=== PATIENT | male | born 1960 | race Caucasian/White ===

== ENCOUNTER 2016-09-29 08:06 | Day surgery (SDC) | payer BC ==
[2016-09-29] MEDS ORDERED: Lidocaine 1%/Sod Bicarbonate in NS 8.4% 1 ML Syringe PRN (08:42)
[2016-09-29] MEDS ORDERED: Sodium Chloride 0.9% 10 ML Syringe FLUSH PRN (08:42)
[2016-09-29] MEDS ORDERED: Lactated Ringers 1,000 ML IV SCH (08:45)
--- NOTE | 2016-09-29 09:44 | PCM.PREANE ---
Preanesthetic Assessment - Anesthesia/Transfusion/Family Hx Anesthesia History: Prior Anesthesia Without Reaction Family History of Anesthesia Reaction: No Transfusion History: No Prior Transfusion(s) - Review of Systems General: No Symptoms Pulmonary: No Symptoms Cardiovascular: No Symptoms Gastrointestinal: No Symptoms Neurological: Numbness (right hand shoulder) Other: Reports: None - Physical Assessment NPO Status Date: 09/28/16 NPO Status Time: 00:00 Pulse: 52 O2 Sat by Pulse Oximetry: 95 Respiratory Rate: 16 Blood Pressure: 143/84 Temperature: 36.6 C Height: 1.83 m Weight: 108.862 kg ASA Class: 2 Mental Status: Alert & Oriented x3 Airway Class: Mallampati = 1 Dentition: Reports: Helix(s) Thyro-Mental Finger Breadths: 3 Mouth Opening Finger Breadths: 3 ROM/Head Extension: Limited/Partial Lungs: Clear to Auscultation, Normal Respiratory Effort Cardiovascular: Regular Rate, Regular Rhythm - Allergies Allergies/Adverse Reactions: Allergies Allergy/AdvReac Type Severity Reaction Status Date / Time amoxicillin Allergy Hives Verified 08/07/14 21:38 - Blood Blood Available: No Product(s) Available: None - Anesthesia Plan Pre-Op Medication Ordered: None - Acknowledgements Anesthesia Type Planned: MAC Pt an Appropriate Candidate for the Planned Anesthesia: Yes Alternatives and Risks of Anesthesia Discussed w Pt/Guardian: Yes Pt/Guardian Understands and Agrees with Anesthesia Plan: Yes PreAnesthesia Questionnaire Other Genitourinary History: bladder cancer - Past Surgical History Other Musculoskeletal Surgeries/Procedures:: multiple fractures throughout life. - SUBSTANCE USE Smoking Status *Q: Never Smoker Second Hand Smoke Exposure: No Recreational Drug Use History: No - HOME MEDS Home Medications: Home Meds Verapamil HCl [Verapamil ER] 180 mg PO DAILY 08/07/14 [History] Aspirin 81 mg PO DAILY 09/24/16 [History] Fish Oil/[place]-3 Fatty Acids [Fish Oil 1,000 MG] 1 cap PO DAILY 09/24/16 [ History] Losartan [Cozaar] 50 mg PO BID 09/24/16 [History] Pravastatin [Pravachol] 20 mg PO DAILY 09/24/16 [History] Vitamin B Complex 1 tab PO DAILY 09/24/16 [History] - CURRENT (IN HOUSE) MEDS Current Meds: Current Medications Lactated Ringer's (Ringers, Lactated) 1,000 mls @ 125 mls/hr IV ASDIRECTED HOLDEN Stop: 09/29/16 23:00 Lidocaine/Sodium Bicarbonate (Buffered Lidocaine 1% In Ns 8.4%) 0.25 ml .XX ONETIME PRN PRN Reason: Prior to IV Start Stop: 09/29/16 18:00 Phenylephrine HCl ([place]-Synephrine 2.5% Ophth Soln) 0 ml EYERT ONETIME HOLDEN Stop: 09/29/16 16:00 Sodium Chloride (Saline Flush) 10 ml FLUSH ASDIRECTED PRN PRN Reason: Keep Vein Open Stop: 09/29/16 18:00
[2016-09-29] MEDS ORDERED: Propofol 200 MG/20 ML SDV ONE (09:45)
[2016-09-29] MEDS ORDERED: Lidocaine 1% 4 ML ONE (09:45)
[2016-09-29] MEDS ORDERED: fentaNYL 100 MCG/2 ML SDV ONE (09:46)
[2016-09-29] MEDS ORDERED: Lidocaine 1% with EPINEPHrine 1:100,000 20 ML MDV ONE (10:50)
[2016-09-29] MEDS ORDERED: Erythromycin Base 0.5% Ophth Oint 1 GM Tube ONE (10:50)
[2016-09-29] MEDS: Phenylephrine 2.5% Ophth Soln 2 ML Bot EYERT SCH ×2 (10:53→10:56)
[2016-09-29] MEDS ORDERED: Glycopyrrolate 0.2 MG/ML SDV ONE (11:08)
[2016-09-29] MEDS ORDERED: Atropine 0.4 MG/ML SDV ONE (11:12)
--- NOTE | 2016-09-29 11:30 | PCM48HPAN ---
Post Anesthesia Note - EVALUATION WITHIN 48HRS OF ANESTHETIC Vital Signs in Normal Range: Yes Patient Participated in Evaluation: Yes Respiratory Function Stable: Yes Airway Patent: Yes Cardiovascular Function Stable: Yes Hydration Status Stable: Yes Pain Control Satisfactory: Yes Nausea and Vomiting Control Satisfactory: Yes Mental Status Recovered: Yes
[2016-09-29 12:39] VITALS: BP 141/66
== END 2016-09-29 12:25 | disposition home or self-care (01) ==
LOC: JD.SDS 08:06
PROVIDERS: ATTEND Ophthalmology
DX: H11.051 Peripheral pterygium, progressive, right eye (principal); H16.042 Marginal corneal ulcer, left eye; H25.813 Combined forms of age-related cataract, bilateral; H01.024 Squamous blepharitis left upper eyelid; H01.025 Squamous blepharitis left lower eyelid; H01.021 Squamous blepharitis right upper eyelid; H01.022 Squamous blepharitis right lower eyelid; H02.831 Dermatochalasis of right upper eyelid; H02.834 Dermatochalasis of left upper eyelid; I10 Essential (primary) hypertension; Z86.73 Personal history of transient ischemic attack (TIA), and cerebral infarction without residual deficits; Z85.9 Personal history of malignant neoplasm, unspecified; Z88.0 Allergy status to penicillin; Z79.82 Long term (current) use of aspirin; Z79.899 Other long term (current) drug therapy; Z98.890 Other specified postprocedural states
CPT/HCPCS: 65426; 93005; A9270; J0461; J3010; J3490; J7120; J2704

== ENCOUNTER 2019-09-13 07:25 | Day surgery (SDC) | payer BC, OTHER ==
[~2019-09-13 07:25] MED LIST: Lactated Ringers 1,000 ML IV SCH; Lidocaine 1%/Sod Bicarbonate in NS 8.4% 1 ML Syringe IDERM PRN; Sodium Chloride 0.9% 10 ML Syringe FLUSH PRN
--- NOTE | 2019-09-13 07:55 | PCM.PREANE ---
Preanesthetic Assessment - Anesthesia/Transfusion/Family Hx Anesthesia History: Prior Anesthesia Without Reaction Family History of Anesthesia Reaction: No Transfusion History: No Prior Transfusion(s) - Review of Systems General: No Symptoms Pulmonary: Other (ISSA no CPAP) Cardiovascular: Other Gastrointestinal: No Symptoms, Other (hx of GERD, changed diet) Neurological: Other (hx of cva, states no residual) Other: Reports: Easy Bleeding, Easy Bruising (on eliquis, stopped 09/10/19) - Physical Assessment NPO Status Date: 09/12/19 NPO Status Time: 22:00 Vital Signs: Last Vital Signs Temp 36.2 C 09/13/19 07:20 Pulse 57 L 09/13/19 07:20 Resp 16 09/13/19 07:20 BP 148/74 H 09/13/19 07:20 Pulse Ox 94 L 09/13/19 07:20 Height: 1.83 m Weight: 106.594 kg ASA Class: 3 Mental Status: Alert & Oriented x3 Dentition: Reports: Normal Dentition Thyro-Mental Finger Breadths: 3 Mouth Opening Finger Breadths: 3 ROM/Head Extension: Full Lungs: Clear to Auscultation, Normal Respiratory Effort Cardiovascular: Regular Rate, Regular Rhythm - Lab Values: Laboratory Last Values Sodium 143 mEq/L (136-145) 08/28/19 08:35 Potassium 4.4 mEq/L (3.5-5.1) 08/28/19 08:35 Chloride 107 mEq/L (98-107) 08/28/19 08:35 Carbon Dioxide 24 mEq/L (21-32) 08/28/19 08:35 Anion Gap 16.4 (5-15) H 08/28/19 08:35 BUN 47 mg/dL (7-18) H 08/28/19 08:35 Creatinine 1.8 mg/dL (0.7-1.3) H 08/28/19 08:35 Est Cr Clr Drug Dosing TNP 08/28/19 08:35 Estimated GFR (MDRD) 39 mL/min (>60) 08/28/19 08:35 BUN/Creatinine Ratio 26.1 (14-18) H 08/28/19 08:35 Glucose 94 mg/dL (74-106) 08/28/19 08:35 Calcium 9.5 mg/dL (8.5-10.1) 08/28/19 08:35 - Allergies Allergies/Adverse Reactions: Allergies Allergy/AdvReac Type Severity Reaction Status Date / Time amoxicillin Allergy Hives Verified 09/13/19 07:42 chlorhexidine Allergy Rash Verified 09/13/19 07:42 - Blood Blood Available: No Product(s) Available: None - Acknowledgements Anesthesia Type Planned: MAC Pt an Appropriate Candidate for the Planned Anesthesia: Yes Alternatives and Risks of Anesthesia Discussed w Pt/Guardian: Yes Pt/Guardian Understands and Agrees with Anesthesia Plan: Yes PreAnesthesia Questionnaire HEENT History: Reports: Impaired Vision, Other (See Below) Other HEENT History: peripheral ulcerative keratitis Cardiovascular History: Reports: Afib, Hypertension, Other (See Below) Other Cardiovascular History: biscuspid aortic valve, aortic valve i nsufficiency, WPW Respiratory History: Reports: Other (See Below) Other Respiratory History: snoring, witnessed apnea Gastrointestinal History: Reports: None Other Genitourinary History: bladder cancer, CKD III, hematuria, protenuria 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 Neurological History: Reports: CVA, Other (See Below) Other Neuro History: embolic stroke, IGA neuropathy Psychiatric History: Reports: None Endocrine/Metabolic History: Reports: Obesity/BMI 30+ Hematologic History: Reports: None Immunologic History: Reports: None Oncologic (Cancer) History: Reports: None Dermatologic History: Reports: None - Past Surgical History Head Surgeries/Procedures: Reports: None HEENT Surgical History: Reports: Eye Surgery Cardiovascular Surgical History: Reports: Cardiac Ablation Respiratory Surgical History: Reports: None GI Surgical History: Reports: Colonoscopy Male Surgical History: Reports: Vasectomy Endocrine Surgical History: Reports: None Neurological Surgical History: Reports: None Musculoskeletal Surgical History: Reports: Other (See Below) Other Musculoskeletal Surgeries/Procedures:: multiple fractures throughout life, left ankle fracture with hardware intact Oncologic Surgical History: Reports: None Dermatological Surgical History: Reports: None - SUBSTANCE USE Smoking Status *Q: Never Smoker Recreational Drug Use History: No - HOME MEDS Home Medications: Home Meds Verapamil HCl [Verapamil ER] 180 mg PO DAILY 08/07/14 [History] Losartan [Cozaar] 50 mg PO BID 09/24/16 [History] Vitamin B Complex 1 tab PO DAILY 09/24/16 [History] Apixaban [Eliquis] 5 mg PO BID 09/12/19 [History] Ascorbic Acid [Vitamin C] 1,000 mg PO DAILY 09/12/19 [History] Chlorthalidone 12.5 mg PO DAILY 09/12/19 [History] Multivitamin 1 tab PO DAILY 09/12/19 [History] - CURRENT (IN HOUSE) MEDS Current Meds: Current Medications Lactated Ringer's (Ringers, Lactated) 1,000 mls @ 125 mls/hr IV ASDIRECTED HOLDEN Stop: 09/13/19 23:00 Lidocaine/Sodium Bicarbonate (Buffered Lidocaine 1% In Ns 8.4%) 0.25 ml IDERM ONETIME PRN PRN Reason: Prior to IV Start Stop: 09/13/19 18:00 Sodium Chloride (Saline Flush) 10 ml FLUSH ASDIRECTED PRN PRN Reason: Keep Vein Open Stop: 09/13/19 18:00
[2019-09-13] MEDS ORDERED: Midazolam 1 MG/ML 2 ML SDV ONE (08:03)
[2019-09-13] MEDS ORDERED: Propofol 200 MG/20 ML SDV ONE (08:03)
--- NOTE | 2019-09-13 09:04 | PCM.OPNOTE ---
- General Post-Op/Procedure Note Date of Surgery/Procedure: 09/13/19 Operative Procedure(s): colonoscopy Findings: Diverticulosis Pre Op Diagnosis: family history of colon cancer Post-Op Diagnosis: same Anesthesia Technique: MAC Primary Surgeon: Rosanne Larsen Anesthesia Provider: Brenda Wu Fluid Replacement, Intraop: 800 Output, Urine Amount: 0 EBL in mLs: 0 Complications: none apparent Condition: Good
--- NOTE | 2019-09-13 09:08 | PCM.PRNOTE ---
- Free Text/Narrative Note: Operative Report Date of Surgery/Procedure: September 13, 2019 Operative Procedure: Colonoscopy to cecum Pre Op Diagnosis: Family history of colorectal cancer Post-Op Diagnosis: same Surgeon: Rosanne Larsen MD Anesthesia Technique: MAC Anesthesia Provider: Brenda Wu CRNA IV Fluid Replacement, Intraop: 800cc Output, Urine Amount: 0cc EBL: 0cc Findings: Diverticulosis Specimens: None Indication: The patient is a 59 year-old gentleman who presented to the outpatient clinic requesting colorectal cancer screening. The patient has a history of a first and second degree relative with colon cancer. We discussed the procedure of a colonoscopy including the polypectomy and biopsy. Risks of bleeding and perforation were discussed, the patient understood and wished to proceed. Written and consent was obtained Description of the procedure: The patient was brought to the endoscopy suite and placed in the left lateral decubitus position. Appropriate monitors were applied. The patient was given MAC anesthesia. An anorectal examination was performed, revealing no external abnormality. The scope was placed into the rectum and advanced to cecum with minimal difficulty. The patients cecum was entered, and the ileocecal valve and appendiceal orifice were identified and normal. At this point, the scope was withdrawn, paying careful attention to the mucosa. The patient had good bowel prep, allowing for visualization of 58-90% of the mucosa. Diverticulosis was noted scattered in the hepatic flexure and ascending colon . In the rectum, the scope was retroflexed and no abnormalities were noted, except for some hemorrhoidal tissue. The scope was placed back in the lumen and the excess air was aspirated. The patient tolerated the procedure well. Complications: none apparent Condition: Good, transported to PACU in stable condition Rosanne Larsen MD General Surgery
--- NOTE | 2019-09-13 09:09 | PCM48HPAN ---
Post Anesthesia Note - EVALUATION WITHIN 48HRS OF ANESTHETIC Vital Signs in Normal Range: Yes Patient Participated in Evaluation: Yes Respiratory Function Stable: Yes Airway Patent: Yes Cardiovascular Function Stable: Yes Hydration Status Stable: Yes Pain Control Satisfactory: Yes Nausea and Vomiting Control Satisfactory: Yes Mental Status Recovered: Yes Vital Signs: Last Vital Signs Temp 36.2 C 09/13/19 07:20 Pulse 57 L 09/13/19 07:20 Resp 16 09/13/19 07:20 BP 148/74 H 09/13/19 07:20 Pulse Ox 94 L 09/13/19 07:20
[2019-09-13 09:56] VITALS: BP 120/65; PULSE 66
== END 2019-09-13 09:54 | disposition home or self-care (01) ==
LOC: JD.SDS 07:25
PROVIDERS: ATTEND Surgery
DX: Z12.11 Encounter for screening for malignant neoplasm of colon (principal); K57.30 Diverticulosis of large intestine without perforation or abscess without bleeding; Z11.59 Encounter for screening for other viral diseases; Z80.0 Family history of malignant neoplasm of digestive organs; I12.9 Hypertensive chronic kidney disease with stage 1 through stage 4 chronic kidney disease, or unspecified chronic kidney disease; N18.3 Chronic kidney disease, stage 3 (moderate); E66.9 Obesity, unspecified; E78.5 Hyperlipidemia, unspecified; G47.33 Obstructive sleep apnea (adult) (pediatric); Z79.899 Other long term (current) drug therapy; Z88.0 Allergy status to penicillin; Z88.8 Allergy status to other drugs, medicaments and biological substances
CPT/HCPCS: 36415; 45378; 80048; 87635; J2250; J2704; J7120; 00812; U0002

== ENCOUNTER 2020-04-30 10:46 | Emergency (ER) | payer BC, OTHER ==
[2020-04-30] MEDS ORDERED: Sodium Chloride 0.9% 10 ML Syringe FLUSH PRN (11:05)
--- NOTE | 2020-04-30 11:51 | EDM.PDOC ---
ED HPI GENERAL MEDICAL PROBLEM - General Chief Complaint: Respiratory Problem Stated Complaint: [facility] Time Seen by Provider: 04/30/20 11:01 Source of Information: Reports: Patient, RN Notes Reviewed History Limitations: Reports: No Limitations - History of Present Illness INITIAL COMMENTS - FREE TEXT/NARRATIVE: Patient is a 59-year-old male presenting to the emergency department for evaluation with regards to cough, fever, chills, nausea, vomiting, and diarrhea. He also reports occasional shortness of breath. He denies chest pain. Symptoms began approximately 11 days ago. His is also ill and diagnosed with COVID-19. He has not been tested for COVID-19. He has a history of hypertension, Gljzk-[id number]-Geotb, and A. fib. He is on Eliquis. Denies any chronic lung conditions. On triage, oxygen was found to be slightly low at 92%, however at the time my exam, he had dip down to 87%. Vital signs are otherwise stable. Temperature 98.4, pulse 72, blood pressure 116/66, respiratory rate 13. Headache Pain Score (Numeric/FACES): 3 - Related Data Allergies Allergy/AdvReac Type Severity Reaction Status Date / Time amoxicillin Allergy Hives Verified 04/30/20 10:50 chlorhexidine Allergy Rash Verified 04/30/20 10:50 Home Meds: Home Meds RX: Verapamil HCl [Verapamil ER] 180 mg PO DAILY 08/07/14 [History] RX: Losartan [Cozaar] 50 mg PO BID 09/24/16 [History] RX: Vitamin B Complex 1 tab PO DAILY 09/24/16 [History] RX: Ascorbic Acid [Vitamin C] 1,000 mg PO DAILY 09/12/19 [History] RX: Multivitamin 1 tab PO DAILY 09/12/19 [History] RX: Apixaban [Eliquis] 5 mg PO BID #0 09/13/19 [Rx] Past Medical History HEENT History: Reports: Impaired Vision, Other (See Below) Other HEENT History: peripheral ulcerative keratitis Cardiovascular History: Reports: Afib, Hypertension, Other (See Below) Other Cardiovascular History: biscuspid aortic valve, aortic valve insufficiency, WPW Respiratory History: Reports: Other (See Below) Other Respiratory History: snoring, witnessed apnea Gastrointestinal History: Reports: None Other Genitourinary History: bladder cancer 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 Neurological History: Reports: CVA, Other (See Below) Other Neuro History: embolic stroke, IGA neuropathy Psychiatric History: Reports: None Endocrine/Metabolic History: Reports: Obesity/BMI 30+ Hematologic History: Reports: None Immunologic History: Reports: None Oncologic (Cancer) History: Reports: None Dermatologic History: Reports: None - Past Surgical History Head Surgeries/Procedures: Reports: None HEENT Surgical History: Reports: Eye Surgery Cardiovascular Surgical History: Reports: Cardiac Ablation Respiratory Surgical History: Reports: None GI Surgical History: Reports: Colonoscopy Male Surgical History: Reports: Vasectomy Endocrine Surgical History: Reports: None Neurological Surgical History: Reports: None Musculoskeletal Surgical History: Reports: Other (See Below) Other Musculoskeletal Surgeries/Procedures:: multiple fractures throughout life. Oncologic Surgical History: Reports: None Dermatological Surgical History: Reports: None Social & Family History - Tobacco Use Tobacco Use Status *Q: Never Tobacco User - Caffeine Use Caffeine Use: Reports: None - Recreational Drug Use Recreational Drug Use: No ED ROS GENERAL - Review of Systems Review Of Systems: See Below Constitutional: Reports: Fever, Chills, Weakness, Fatigue, Decreased Appetite HEENT: Reports: No Symptoms Respiratory: Reports: Shortness of Breath (Occasional), Cough ED EXAM, GENERAL - Physical Exam Exam: See Below General Appearance: Alert, WD/WN, No Apparent Distress Respiratory/Chest: No Respiratory Distress, No Accessory Muscle Use, Chest Non- Tender, Other (Faint crackles to the right lower lobe) Cardiovascular: Normal Peripheral Pulses, Regular Rate, Rhythm, No Edema, No Gallop, No JVD, No Murmur, No Rub GI/Abdominal: Normal Bowel Sounds, Soft, Non-Tender, No Organomegaly, No Distention, No Abnormal Bruit, No Mass Neurological: Alert, Oriented, CN II-XII Intact, Normal Cognition, Normal Gait, Normal Reflexes, No Motor/Sensory Deficits Psychiatric: Normal Affect, Normal Mood Skin Exam: Warm, Dry, Intact, Normal Color, No Rash #2 Interpretation EKG Date: 04/30/20 Time: 11:15 Rhythm: NSR Rate (Beats/Min): 72 Center Point: LAD-Left Center Point Deviation P-Wave: Present QRS: Normal ST-T: Normal QT: Normal EKG Interpretation Comments: Sinus rhythm at 72 Frequent unifocal PVCs Early R wave transition-right ventricular hypertrophy/repolarization hypertrophy pattern Tall R wave in lead I-consider left ventricular hypertrophy pattern Short VA interval Mild left axis deviation(-72) Nonspecific ventricular conduction delay EKG interpreted by Dr. Annabelle MEZA Course - Vital Signs Last Recorded V/S: Last Vital Signs Temp 98.4 F 04/30/20 10:53 Pulse 72 04/30/20 10:53 Resp 13 04/30/20 10:53 BP 116/66 04/30/20 10:53 Pulse Ox 92 L 04/30/20 10:53 - Orders/Labs/Meds Orders: Active Orders 24 hr Category Date Time Status EKG Documentation Completion [RC] STAT Care 04/30/20 11:06 Active Peripheral IV Care [RC] . DIRECTED Care 04/30/20 11:05 Active Sodium Chloride 0.9% [Normal Saline] 1,000 ml Med 04/30/20 12:56 Active IV NOW Sodium Chloride 0.9% [Saline Flush] Med 04/30/20 11:05 Active 10 ml FLUSH ASDIRECTED PRN Peripheral IV Insertion Adult [OM.PC] Stat Oth 04/30/20 11:05 Ordered Medication Orders Sodium Chloride (Normal Saline) 1,000 mls @ 150 mls/hr IV NOW STA Stop: 04/30/20 19:35 Last Admin: 04/30/20 13:22 Dose: 150 mls/hr Documented by: BUTCH Sodium Chloride (Sodium Chloride 0.9% 10 Ml Syringe) 10 ml FLUSH ASDIRECTED PRN PRN Reason: Keep Vein Open Last Admin: 04/30/20 11:21 Dose: 10 ml Documented by: BUTCH Labs: Laboratory Tests 04/30/20 04/30/20 04/30/20 Range/Units 11:20 11:44 11:44 WBC 3.42 L (4.23-9.07) K/mm3 RBC 4.89 (4.63-6.08) M/mm3 Hgb 14.4 (13.7-17.5) gm/dl Hct 40.4 (40.1-51.0) % MCV 82.6 D (79.0-92.2) fl MCH 29.4 (25.7-32.2) pg MCHC 35.6 H (32.2-35.5) g/dl RDW Std Deviation 41.9 (35.1-43.9) fL Plt Count 144 L (163-337) K/mm3 MPV 10.3 (9.4-12.3) fl Neut % (Auto) 79.5 H (34.0-67.9) % Lymph % (Auto) 14.6 L (21.8-53.1) % [place] % (Auto) 5.3 (5.3-12.2) % Eos % (Auto) 0 L (0.8-7.0) Baso % (Auto) 0.3 (0.1-1.2) % Neut # (Auto) 2.72 (1.78-5.38) K/mm3 Lymph # (Auto) 0.50 L (1.32-3.57) K/mm3 [place] # (Auto) 0.18 L (0.30-0.82) K/mm3 Eos # (Auto) 0.00 L (0.04-0.54) K/mm3 Baso # (Auto) 0.01 (0.01-0.08) K/mm3 Manual Slide Review Normal smear D-Dimer, Quantitative 0.52 H (0.19-0.50) mg/L Puncture Site ABG pH (7.35-7.45) ABG pCO2 (35.0-45.0) mmHg ABG pO2 (80.0-100.0) mmHg ABG HCO3 (22.0-26.0) meq/L ABG O2 Saturation (96.0-97.0) % ABG Base Excess (-2-2.0) Aman Test A-a Gradient mmHg O2 Delivery Device Oxygen Flow Rate FiO2 (21.00-100.00) % Sodium (136-145) mEq/L Potassium (3.5-5.1) mEq/L Chloride (98-107) mEq/L Carbon Dioxide (21-32) mEq/L Anion Gap (5-15) BUN (7-18) mg/dL Creatinine (0.7-1.3) mg/dL Est Cr Clr Drug Dosing mL/min Estimated GFR (MDRD) (>60) mL/min BUN/Creatinine Ratio (14-18) Glucose (74-106) mg/dL Calcium (8.5-10.1) mg/dL Magnesium (1.8-2.4) mg/dl Total Bilirubin (0.2-1.0) mg/dL AST (15-37) U/L ALT (16-63) U/L Alkaline Phosphatase (46-116) U/L Troponin I (0.00-0.056) ng/mL C-Reactive Protein (<1.0) mg/dL NT-Pro-B Natriuret Pep (0-125) pg/mL Total Protein (6.4-8.2) g/dl Albumin (3.4-5.0) g/dl Globulin gm/dL Albumin/Globulin Ratio (1-2) SARS-CoV-2 RNA (TIREA) Positive H (NEGATIVE) 04/30/20 04/30/20 04/30/20 Range/Units 11:44 11:44 12:07 WBC (4.23-9.07) K/mm3 RBC (4.63-6.08) M/mm3 Hgb (13.7-17.5) gm/dl Hct (40.1-51.0) % MCV (79.0-92.2) fl MCH (25.7-32.2) pg MCHC (32.2-35.5) g/dl RDW Std Deviation (35.1-43.9) fL Plt Count (163-337) K/mm3 MPV (9.4-12.3) fl Neut % (Auto) (34.0-67.9) % Lymph % (Auto) (21.8-53.1) % [place] % (Auto) (5.3-12.2) % Eos % (Auto) (0.8-7.0) Baso % (Auto) (0.1-1.2) % Neut # (Auto) (1.78-5.38) K/mm3 Lymph # (Auto) (1.32-3.57) K/mm3 [place] # (Auto) (0.30-0.82) K/mm3 Eos # (Auto) (0.04-0.54) K/mm3 Baso # (Auto) (0.01-0.08) K/mm3 Manual Slide Review D-Dimer, Quantitative (0.19-0.50) mg/L Puncture Site Lt radial ABG pH 7.35 (7.35-7.45) ABG pCO2 23.6 L (35.0-45.0) mmHg ABG pO2 59.0 L (80.0-100.0) mmHg ABG HCO3 12.7 L (22.0-26.0) meq/L ABG O2 Saturation 88.8 L (96.0-97.0) % ABG Base Excess -10.9 L (-2-2.0) Aman Test Positive A-a Gradient 61 mmHg O2 Delivery Device Room air Oxygen Flow Rate 0.0 FiO2 21.00 (21.00-100.00) % Sodium 137 (136-145) mEq/L Potassium 4.1 (3.5-5.1) mEq/L Chloride 105 (98-107) mEq/L Carbon Dioxide 17 L (21-32) mEq/L Anion Gap 19.1 H (5-15) BUN 58 H (7-18) mg/dL Creatinine 2.5 H (0.7-1.3) mg/dL Est Cr Clr Drug Dosing 34.72 mL/min Estimated GFR (MDRD) 27 (>60) mL/min BUN/Creatinine Ratio 23.2 H (14-18) Glucose 104 (74-106) mg/dL Calcium 8.1 L D (8.5-10.1) mg/dL Magnesium 2.0 (1.8-2.4) mg/dl Total Bilirubin 0.9 (0.2-1.0) mg/dL AST 99 H (15-37) U/L ALT 71 H (16-63) U/L Alkaline Phosphatase 60 (46-116) U/L Troponin I 0.103 H* (0.00-0.056) ng/mL C-Reactive Protein 6.0 H* (<1.0) mg/dL NT-Pro-B Natriuret Pep 1255 H (0-125) pg/mL Total Protein 6.3 L (6.4-8.2) g/dl Albumin 2.6 L (3.4-5.0) g/dl Globulin 3.7 gm/dL Albumin/Globulin Ratio 0.7 L (1-2) SARS-CoV-2 RNA (TIERA) (NEGATIVE) Meds: Medications Generic Name Dose Route Start Last Admin Trade Name Freq PRN Reason Stop Dose Admin Sodium Chloride 1,000 mls @ 150 mls/hr 04/30/20 12:56 04/30/20 13:22 Normal Saline IV 04/30/20 19:35 150 mls/hr NOW STA Administration Sodium Chloride 10 ml 04/30/20 11:05 04/30/20 11:21 Sodium Chloride 0.9% 10 Ml Syringe FLUSH 10 ml ASDIRECTED PRN Administration Keep Vein Open Discontinued Medications Generic Name Dose Route Start Last Admin Trade Name Britt PRN Reason Stop Dose Admin Dexamethasone 4 mg 04/30/20 12:35 04/30/20 12:50 Dexamethasone 4 Mg/Ml Sdv IVPUSH 04/30/20 12:36 4 mg ONETIME ONE Administration - Re-Assessments/Exams Free Text/Narrative Re-Assessment/Exam: Patient is a 59-year-old male presenting to the emergency department with complaints of 11 days history of nausea, vomiting, diarrhea, cough, fever. His has been ill with COVID-19 but he has not been tested. Vital signs on triage showed oxygen of 92%, however it had dipped to 86% on room air at the time of my exam. I have ordered an ABG to be completed on room air. We will then put him on supplemental O2. He denies chest pain or shortness of breath. He has a faint crackles to his bilateral bases but lung sounds are otherwise clear. Vital signs of been stable. I have ordered blood work, chest x-ray, EKG, and Covid testing. 04/30/20 13:35 Hematology significant for WBC low at 3.42, platelets 144, D-dimer minimally elevated at 0.52, CO2 17, anion gap 19.1, BUN 58, creatinine 2.5, AST 99, ALT is 71, troponin 0 0.103, CRP 6.0, proBNP 1255. Patient is Covid positive. ABG completed on room air shows a PCO2 of 23.6, PO2 59.0, HCO3 12.7, O2 saturation 88.8. Patient has been placed on oxygen at 3 L by nasal cannula. EKG showed a normal sinus rhythm with no acute changes. He continues to deny chest pain. est x-ray shows bilateral Covid pneumonia. Patient is quite dry likely due to his decreased oral intake and vomiting and diarrhea for the last 11 days. I have ordered IV fluids of NS at 150 mils per hour to be started. He has also been given dexamethasone 4 mg IV. He will require admission to the hospital, however we do not have any available beds in our facility. Patient requests transfer to [facility]. Called and spoke with the hospitalist on-call at [facility], Dr. Braga. He has accepted the patient for admission. Departure - Departure Time of Disposition: 13:30 Disposition: DC/Tfer to [facility] 02 Condition: Good Clinical Impression: COVID-19, Viral pneumonia, Hypoxia, Elevated troponin Acute on chronic renal failure Qualifiers: Acute renal failure type: unspecified Chronic kidney disease stage: unspecified stage Qualified Code(s): N17.9 - Acute kidney failure, unspecified; N18.9 - Chronic kidney disease, unspecified - Discharge Information Forms: ED Department Discharge Sepsis Event Note (ED) - Evaluation Sepsis Screening Result: No Definite Risk - Focused Exam Vital Signs: Vital Signs Temp Pulse Resp BP Pulse Ox 04/30/20 10:53 98.4 F 72 13 116/66 92 L - My Orders Last 24 Hours: My Active Orders 04/30/20 11:05 Peripheral IV Care [RC] . DIRECTED Sodium Chloride 0.9% [Saline Flush] 10 ml FLUSH ASDIRECTED PRN Peripheral IV Insertion Adult [OM.PC] Stat 04/30/20 11:06 EKG Documentation Completion [RC] STAT 04/30/20 12:56 Sodium Chloride 0.9% [Normal Saline] 1,000 ml IV NOW - Assessment/Plan Last 24 Hours: My Active Orders 04/30/20 11:05 Peripheral IV Care [RC] . DIRECTED Sodium Chloride 0.9% [Saline Flush] 10 ml FLUSH ASDIRECTED PRN Peripheral IV Insertion Adult [OM.PC] Stat 04/30/20 11:06 EKG Documentation Completion [RC] STAT 04/30/20 12:56 Sodium Chloride 0.9% [Normal Saline] 1,000 ml IV NOW
--- NOTE | 2020-04-30 12:02 | CR ---
Chest: Portable view of the chest was obtained. Comparison: Prior chest x-ray of 08/07/14. Heart size is normal. Tortuous thoracic aorta is seen. Patchy areas of increased density are seen within both sides of the chest most prominent within the left upper lung. Bony structures are grossly intact. Prior sternotomy is noted. Minimal scoliosis is noted within the spine. Impression: 1. Patchy areas of increased density on both sides of the chest. If patient is positive for COVID this is likely due to COVID pneumonia. 2. No other acute abnormality is seen. Diagnostic code #3
[2020-04-30] MEDS ORDERED: Dexamethasone 4 MG/ML SDV IVPUSH ONE (12:35)
[2020-04-30] MEDS ORDERED: Sodium Chloride 0.9% 1,000 ML IV STA (12:56)
[2020-04-30 14:41] VITALS: BP 120/64; PULSE 70
== END 2020-04-30 14:40 ==
LOC: JD.ED 10:46
DX: U07.1 COVID-19 (principal); J12.82 Pneumonia due to coronavirus disease 2019; N17.9 Acute kidney failure, unspecified; I12.9 Hypertensive chronic kidney disease with stage 1 through stage 4 chronic kidney disease, or unspecified chronic kidney disease; N18.9 Chronic kidney disease, unspecified; E66.9 Obesity, unspecified; R77.8 Other specified abnormalities of plasma proteins; Z68.32 Body mass index [BMI] 32.0-32.9, adult; Z88.0 Allergy status to penicillin; Z88.8 Allergy status to other drugs, medicaments and biological substances; Z79.899 Other long term (current) drug therapy; Z86.73 Personal history of transient ischemic attack (TIA), and cerebral infarction without residual deficits
CPT/HCPCS: 36415; 36600; 71045; 80053; 82803; 83735; 83880; 84484; 85025; 85379; 86140; 87635; 93005; 96374; 99285; J1100; J7030; 93010; 99284; U0002

== ENCOUNTER 2022-10-14 22:43 | Inpatient (IN) | payer OTHER ==
[2022-10-14 23:22] LABS: BASOPHILS PERCENT AUTO 0.4 % (0.0-1.0); EOSINOPHILS PERCENT AUTO 0.4 % (0.0-6.0); HEMATOCRIT 43.8 % (42.0-52.0); HEMOGLOBIN 15.3 gm/dl (14.0-18.0); IMMATURE GRAN ABSOLUTE AUTO 0.03 K/mm3 (0.00-0.05); IMMATURE GRAN PERCENT AUTO 0.4 % (0.0-0.4); LYMPHOCYTES ABSOLUTE AUTO 0.6 K/mm3 (1.0-4.8); LYMPHOCYTES PERCENT AUTO 7.8 % (24.0-44.0); MEAN CORPUSCULAR HEMOGLOBIN 30.8 pg (28.0-32.0); MEAN CORPUSCULAR HGB CONC 34.9 g/dl (32.0-36.0); MEAN CORPUSCULAR VOLUME 88.3 fl (83.0-99.0); MEAN PLATELET VOLUME 10.1 fl (9.4-12.4); MONOCYTES ABSOLUTE AUTO 0.3 K/mm3 (0.0-0.8); MONOCYTES PERCENT AUTO 3.5 % (0.0-8.0); NEUTROPHILS ABSOLUTE AUTO 6.7 K/mm3 (1.8-7.7); NEUTROPHILS PERCENT AUTO 87.5 % (41.0-71.0); PLATELET COUNT,PLT 186 K/mm3 (150-400); RED BLOOD CELL COUNT 4.96 M/mm3 (4.52-5.90); WHITE BLOOD CELL COUNT,WBC 7.66 K/mm3 (3.9-11.3)
[2022-10-14 23:42] LABS: A/G RATIO 1.4 (1-2); ALBUMIN 4.3 g/dl (3.4-5.0); ANION GAP 16.6 (5-15); BILIRUBIN TOTAL 1.9 mg/dL (0.2-1.0); BUN/CREATININE RATIO 19.5 (14-18); CALCIUM 9.8 mg/dL (8.5-10.1); CREATININE 2.2 mg/dL (0.7-1.3); EST CRCL DRUG DOSING (CG) 39.19 mL/min; POTASSIUM,K 3.6 mEq/L (3.5-5.1); PROTEIN TOTAL,TP 7.4 g/dl (6.4-8.2)
[2022-10-14] MEDS ORDERED: Iopamidol 612 MG/ML 30 ML SDV IVPUSH ONE (23:54)
[2022-10-15] MEDS ORDERED: Sodium Chloride 0.9% 1,000 ML IV ONE (00:21)
[2022-10-15] MEDS ORDERED: Sodium Chloride 0.9% 1,000 ML ONE (02:42)
[2022-10-15] MEDS ORDERED: Prochlorperazine 10 MG/2 ML SDV IVPUSH PRN (02:55)
[2022-10-15] MEDS ORDERED: Sodium Chloride 0.9% 1,000 ML IV SCH (03:00)
[2022-10-15 03:08] LABS: APPEARANCE,URINE CLEAR (Clear); BILIRUBIN,URINE NEGATIVE (Negative); COLOR,URINE YELLOW (Yellow); GLUCOSE,URINE 2+ (Negative); KETONES,URINE NEGATIVE (Negative); LEUKOCYTE ESTERASE,URINE NEGATIVE (Negative); NITRITE,URINE NEGATIVE (Negative); OCCULT BLOOD,URINE TRACE-INTACT (Negative); PH,URINE 7.5 (5.0-8.0); PROTEIN,URINE 2+ (Negative); UROBILINOGEN,URINE 0.2 (0.2-1.0)
[2022-10-15] MEDS ORDERED: Naloxone 0.4 MG/ML SDV IVPUSH PRN (03:10)
[2022-10-15] MEDS ORDERED: Morphine 2 MG/ML SYRINGE IVPUSH PRN ×2 (03:10)
[2022-10-15] MEDS ORDERED: Ondansetron 4 MG/2 ML SDV IV PRN (03:10)
[2022-10-15 03:36] LABS: RBC,URINE NOT SEEN /hpf (0-5)
[2022-10-15 03:37] LABS: AMORPHOUS SEDIMENT,URINE RARE /hpf (NOT SEEN); BACTERIA,URINE NOT SEEN /hpf (FEW); EPITHELIAL CELLS,URINE 0-5 /hpf (0-5); FINE GRANULAR CASTS,URINE 0-5 /lpf (0-5); MUCUS,URINE RARE /hpf (FEW); WBC,URINE 0-5 /hpf (0-5)
[2022-10-15 05:38] LABS: BASOPHILS PERCENT AUTO 0.5 % (0.0-1.0); EOSINOPHILS ABSOLUTE AUTO 0.1 K/mm3 (0.0-0.4); EOSINOPHILS PERCENT AUTO 0.8 % (0.0-6.0); HEMATOCRIT 46.3 % (42.0-52.0); HEMOGLOBIN 16.2 gm/dl (14.0-18.0); IMMATURE GRAN ABSOLUTE AUTO 0.04 K/mm3 (0.00-0.05); IMMATURE GRAN PERCENT AUTO 0.5 % (0.0-0.4); LYMPHOCYTES ABSOLUTE AUTO 1.3 K/mm3 (1.0-4.8); LYMPHOCYTES PERCENT AUTO 15.8 % (24.0-44.0); MEAN CORPUSCULAR HEMOGLOBIN 30.9 pg (28.0-32.0); MEAN CORPUSCULAR VOLUME 88.2 fl (83.0-99.0); MONOCYTES ABSOLUTE AUTO 0.6 K/mm3 (0.0-0.8); NEUTROPHILS ABSOLUTE AUTO 5.9 K/mm3 (1.8-7.7); NEUTROPHILS PERCENT AUTO 74.4 % (41.0-71.0); PLATELET COUNT,PLT 190 K/mm3 (150-400); RED BLOOD CELL COUNT 5.25 M/mm3 (4.52-5.90); WHITE BLOOD CELL COUNT,WBC 7.96 K/mm3 (3.9-11.3)
[2022-10-15 06:03] LABS: ANION GAP 15.6 (5-15); CALCIUM 10.3 mg/dL (8.5-10.1); EST CRCL DRUG DOSING (CG) 43.11 mL/min; POTASSIUM,K 3.6 mEq/L (3.5-5.1)
[2022-10-15] MEDS: Verapamil 180 MG Tab.ER PO SCH (08:02)
[2022-10-15] MEDS: Empagliflozin 10 MG Tab PO SCH (08:02)
[2022-10-15] MEDS: Losartan 50 MG Tab PO SCH ×2 (08:03→21:25)
[2022-10-15] MEDS: Famotidine 20 MG/2 ML SDV IV SCH (08:03)
[2022-10-15] MEDS: Lactated Ringers 1,000 ML IV SCH ×3 (08:43→23:17)
[2022-10-15] MEDS ORDERED: Apixaban 5 MG Tab PO SCH (09:00)
[2022-10-15] MEDS: Acetaminophen 325 MG Tab PO PRN ×2 (18:22→22:40)
[2022-10-16] MEDS: Benzocaine/Cetylpyridinium/Menthol Lozenge MUCMEM PRN ×2 (05:00→15:56)
[2022-10-16] MEDS: Acetaminophen 325 MG Tab PO PRN ×2 (05:00→15:52)
[2022-10-16 05:18] LABS: ANION GAP 10.9 (5-15); BUN/CREATININE RATIO 17.5 (14-18); CALCIUM 9.2 mg/dL (8.5-10.1); EST CRCL DRUG DOSING (CG) 43.11 mL/min; POTASSIUM,K 3.9 mEq/L (3.5-5.1)
[2022-10-16 05:27] LABS: BASOPHILS ABSOLUTE AUTO 0.1 K/mm3 (0.0-0.2); BASOPHILS PERCENT AUTO 0.7 % (0.0-1.0); EOSINOPHILS ABSOLUTE AUTO 0.2 K/mm3 (0.0-0.4); EOSINOPHILS PERCENT AUTO 3.2 % (0.0-6.0); HEMATOCRIT 45.1 % (42.0-52.0); HEMOGLOBIN 15.1 gm/dl (14.0-18.0); IMMATURE GRAN ABSOLUTE AUTO 0.03 K/mm3 (0.00-0.05); IMMATURE GRAN PERCENT AUTO 0.4 % (0.0-0.4); LYMPHOCYTES ABSOLUTE AUTO 1.4 K/mm3 (1.0-4.8); LYMPHOCYTES PERCENT AUTO 19.6 % (24.0-44.0); MEAN CORPUSCULAR HEMOGLOBIN 30.6 pg (28.0-32.0); MEAN CORPUSCULAR HGB CONC 33.5 g/dl (32.0-36.0); MEAN CORPUSCULAR VOLUME 91.3 fl (83.0-99.0); MONOCYTES ABSOLUTE AUTO 0.6 K/mm3 (0.0-0.8); MONOCYTES PERCENT AUTO 8.1 % (0.0-8.0); NEUTROPHILS ABSOLUTE AUTO 4.9 K/mm3 (1.8-7.7); PLATELET COUNT,PLT 162 K/mm3 (150-400); RED BLOOD CELL COUNT 4.94 M/mm3 (4.52-5.90); WHITE BLOOD CELL COUNT,WBC 7.16 K/mm3 (3.9-11.3)
[2022-10-16] MEDS: Verapamil 180 MG Tab.ER PO SCH (08:35)
[2022-10-16] MEDS: Losartan 50 MG Tab PO SCH ×2 (08:35→20:28)
[2022-10-16] MEDS: Empagliflozin 10 MG Tab PO SCH (08:36)
[2022-10-16] MEDS: Famotidine 20 MG/2 ML SDV IV SCH (08:36)
[2022-10-16] MEDS: Lactated Ringers 1,000 ML IV SCH (09:47)
[2022-10-17] MEDS: Lactated Ringers 1,000 ML IV SCH (02:22)
[2022-10-17] MEDS ORDERED: Apixaban 5 MG Tab PO ONE (09:17)
[2022-10-17] MEDS: Famotidine 20 MG/2 ML SDV IV SCH (09:23)
[2022-10-17] MEDS: Losartan 50 MG Tab PO SCH (09:23)
[2022-10-17] MEDS: Verapamil 180 MG Tab.ER PO SCH (09:24)
[2022-10-17] MEDS: Empagliflozin 10 MG Tab PO SCH (09:24)
[2022-10-17 14:28] VITALS: BP 133/85; PULSE 50
== END 2022-10-17 14:23 | disposition home or self-care (01) | DRG 390 ==
LOC: JD.ED 22:43 → JD.MS 10-15 01:19 → OBSVTOIN 10-15 07:29
PROVIDERS: ADMIT Emergency Medicine; ATTEND Emergency Medicine
PROC: 0D9670Z Drainage of Stomach with Drainage Device, Via Natural or Artificial Opening (ICD-10-PCS; principal; 2022-10-15)
DX: K56.609 Unspecified intestinal obstruction, unspecified as to partial versus complete obstruction (principal); I45.6 Pre-excitation syndrome; N18.32 Chronic kidney disease, stage 3b; H54.7 Unspecified visual loss; I12.9 Hypertensive chronic kidney disease with stage 1 through stage 4 chronic kidney disease, or unspecified chronic kidney disease; I48.91 Unspecified atrial fibrillation; Z88.0 Allergy status to penicillin; Z86.73 Personal history of transient ischemic attack (TIA), and cerebral infarction without residual deficits; Z85.51 Personal history of malignant neoplasm of bladder; Z95.1 Presence of aortocoronary bypass graft
CPT/HCPCS: 36415; 43752; 71045; 71045-26; 74018; 74018-26; 74177; 74177-26; 80048; 80053; 81001; 82947; 85025; 96360; 96361; 99285; 99285-25; A9270-GY; G0378; J2270; J2405; J3490; J7030; J7120; Q9967